=== PATIENT | male | born 1940 | race Caucasian/White ===

== ENCOUNTER 2016-08-01 07:49 | Emergency (ER) ==
[2016-08-01 07:58] VITALS: BMI 27.8
--- NOTE | 2016-08-01 08:21 | ED.PDOC ---
General ED Provider: Dr. JUANY BRIAN Chief Complaint: Earache Stated Complaint: Patient is a 75 year male who comes to Er with Left ear pain which feels like wax. He has been following up with ENT for the same ear pain from time to time and has a tube in left ear. Has decreased hearing. Denies any drainage. Time Seen by Physician: 08:19 Mode of Arrival: Walk-In Information Source: Patient Exam Limitations: No limitations Primary Care Provider: NORRIS BEDOYA Nursing and Triage Documentation Reviewed and Agree: Yes Review of Systems - Review Of Systems Constitutional: Reports: No symptoms Eyes: Reports: No symptoms Ears, Nose, Mouth, Throat: Reports: Ear pain Respiratory: Reports: No symptoms Cardiac: Reports: No symptoms GI: Reports: No symptoms : Reports: No symptoms Musculoskeletal: Reports: No symptoms Skin: Reports: No symptoms Neurological: Reports: No symptoms Endocrine: Reports: No symptoms Hematologic/Lymphatic: Reports: No symptoms All Other Systems: Reviewed and Negative Past Medical History - Past Medical History Endocrine: Reports: None Cardiovascular: Reports: None Respiratory: Reports: None Hematological: Reports: None Gastrointestinal: Reports: GERD Genitourinary: Reports: Kidney stones, Other Neuro/Psych: Reports: None Musculoskeletal: Reports: Back Pain Cancer: Reports: None Other Pertinent Past Medical History: prostate enlargement - Surgical History General Surgical History: Reports: Hernia Repair, Other (HEMORRHOID, ROSANA STRIPPNG, HERNIA) - Family History Family History: Reports: Unknown - Social History Smoking Status: Former smoker Hx Substance Use: No Alcohol Screening: Occasionally Physical Exam - Physical Exam Appearance: Ill-appearing Ill-appearing: Mild Pain Distress: Mild Eyes: CESIA, EOMI, Conjunctiva clear ENT: Ears normal (tube on the ear drum with no drainage ) Neck: Supple Respiratory: Airway patent, Breath sounds clear, Breath sounds equal, Respirations nonlabored Cardiovascular: RRR, Pulses normal, No rub, No murmur Skin: Warm, Dry, Normal color Neurological: Motor intact, Alert, Oriented Psychiatric: Affect appropriate, Mood appropriate Critical Care Note - Critical Care Note Total Time (mins): 0 Course - Course Vital Signs: Temp Pulse Resp BP Pulse Ox 08/01/16 07:49 98.6 F 74 16 148/83 H 94 L Departure - Departure Time of Disposition: 08:19 Disposition: HOME SELF-CARE Discharge Problem: Otitis media Instructions: Otitis Media (ED) Condition: Fair Pt referred to PMD for follow-up: Yes Additional Instructions: Take Medications as prescribed follow up with ENT soon. Prescriptions: Amoxicillin [Amoxil] 500 mg PO TID #30 capsule Tramadol HCl [Ultram] 50 mg PO Q6H PRN #14 tablet PRN Reason: Severe Pain Allergies/Adverse Reactions: Allergies No Known Allergies Allergy (Verified 08/01/16 07:55) Home Medications: Ambulatory Orders Alfuzosin HCl [Uroxatral] 10 mg PO DAILY 11/09/12 Dapsone [Aczone] 60 gm TP PRN PRN 11/09/12 Esomeprazole Magnesium [Nexium] 40 mg PO DAILY 11/09/12 Minocycline HCl 100 mg PO PRN PRN 11/09/12 Citalopram Hydrobromide [Citalopram HBr] 1 tab PO DAILY 09/21/14 Finasteride 1 tab PO DAILY 09/21/14 Amoxicillin [Amoxil] 500 mg PO TID #30 capsule 08/01/16 Tramadol HCl [Ultram] 50 mg PO Q6H PRN #14 tablet 08/01/16 Disposition Discussed With: Patient
[2016-08-01 08:31] VITALS: BP 134/80; TEMP 97.8
== END 2016-08-01 08:29 | disposition home or self-care (01) ==
LOC: ED 07:49
DX: H66.92 Otitis media, unspecified, left ear (principal); Z96.22 Myringotomy tube(s) status
CPT/HCPCS: 99282

== ENCOUNTER 2017-07-25 18:43 | Emergency (ER) | payer OTHER ==
[2017-07-25 18:48] VITALS: BP 132/83; TEMP 98.4; BMI 26.7
[2017-07-25] MEDS ORDERED: TENIVAC IM ONE (18:55)
--- NOTE | 2017-07-25 18:59 | ED.PDOC ---
General ED Provider: Dr. NORRIS BEDOYA-ER Chief Complaint: Puncture Wound Stated Complaint: i stepped on a nail Time Seen by Physician: 18:57 Mode of Arrival: Walk-In Information Source: Patient Exam Limitations: No limitations Primary Care Provider: NORRIS BEDOYA Nursing and Triage Documentation Reviewed and Agree: Yes Reviewed sepsis parameters & appropriate labs ordered?: Yes System Inflammatory Response Syndrome: Not Applicable Sepsis Protocol: For patient's 13 years and over: Temp is 96.8 and below OR 101 and greater Pulse >90 BPM Resp >20/minute Acutely Altered Mental Status Are patient's symptoms suggestive of a new infection, such as: -Pneumonia -Skin, Soft Tissue -Endocarditis -UTI -Bone, Joint Infection -Implantable Device -Acute Abdominal Infection -Wound Infection -Meningitis -Blood Stream Catheter Infection -Unknown Skin Complaint Exam - Skin/Soft Tissue Complaint/Exam Onset/Duration: left foot Symptoms Are: Still present Timing: Constant Initial Severity: Mild Current Severity: None Location: bottom of foot Character: Reports: Redness. Denies: Swelling, Raised, Painful Aggravating: Reports: None Alleviating: Reports: None Associated Signs and Symptoms: Denies: Fever, Chills, Itching, Drainage, Bruising, Tenderness, Red streaks, Joint swelling Related Surgical History: Reports: None Recent Exposure to Others w/Similar Symptoms: No Skin Findings: Present: Other Joint Tenderness Present: No Differential Diagnoses: Other Review of Systems - Review Of Systems Constitutional: Reports: No symptoms Eyes: Reports: No symptoms Ears, Nose, Mouth, Throat: Reports: No symptoms Respiratory: Reports: No symptoms Cardiac: Reports: No symptoms GI: Reports: No symptoms : Reports: No symptoms Musculoskeletal: Reports: No symptoms Skin: Reports: No symptoms Neurological: Reports: No symptoms Endocrine: Reports: No symptoms Hematologic/Lymphatic: Reports: No symptoms All Other Systems: Reviewed and Negative Past Medical History - Past Medical History Previously Healthy: No Endocrine: Reports: None Cardiovascular: Reports: None Respiratory: Reports: None Hematological: Reports: None Gastrointestinal: Reports: GERD Genitourinary: Reports: Kidney stones, Other Neuro/Psych: Reports: None Musculoskeletal: Reports: Back Pain Cancer: Reports: None Other Pertinent Past Medical History: prostate enlargement - Surgical History General Surgical History: Reports: Hernia Repair, Other (HEMORRHOID, ROSANA STRIPPNG, HERNIA) - Family History Family History: Reports: Unknown - Social History Smoking Status: Former smoker Hx Substance Use: No Alcohol Screening: Occasionally - Immunizations Tetanus Shot up to Date: No Physical Exam - Physical Exam Appearance: Well-appearing Eyes: CESIA, EOMI, Conjunctiva clear ENT: Ears normal, Nose normal, Oropharynx normal Neck: Supple Respiratory: Airway patent, Breath sounds clear, Breath sounds equal, Respirations nonlabored Cardiovascular: RRR, Pulses normal, No rub, No murmur GI/: Soft, Nontender, No masses, Bowel sounds normal, No Organomegaly Musculoskeletal: Normal strength, ROM intact, No edema, No calf tenderness Skin: Warm, Dry, Normal color Neurological: Sensation intact, Motor intact, Reflexes intact, Cranial nerves intact, Alert, Oriented Psychiatric: Affect appropriate Critical Care Note - Critical Care Note Total Time (mins): 0 Course - Course Orders, Labs, Meds: Orders Category Date Time Status Tetanus and Diphtheria Tox/Pf [Tenivac] MEDS 07/25/17 18:55 Once 0.5 ml IM .ONCE ONE Medications Generic Name Dose Route Start Last Admin Trade Name Freq PRN Reason Stop Dose Admin Tetanus/Diphtheria Toxoids Adsorbed 0.5 ml 07/25/17 18:55 Tenivac IM 07/25/17 18:56 .ONCE ONE Vital Signs: Temp Pulse Resp BP Pulse Ox 07/25/17 18:44 98.4 F 93 H 20 132/83 94 L Departure - Departure Time of Disposition: 18:58 Disposition: HOME SELF-CARE Discharge Problem: Puncture wound Instructions: Puncture Wound (ED) Condition: Good Pt referred to PMD for follow-up: Yes IPMP verified?: No Additional Instructions: keep clean and dry--call if any signs of infection Allergies/Adverse Reactions: Allergies No Known Drug Allergies Allergy (Verified 07/25/17 18:50) Home Medications: Ambulatory Orders Alfuzosin HCl [Uroxatral] 10 mg PO DAILY 11/09/12 Esomeprazole Magnesium [Nexium] 40 mg PO DAILY 11/09/12 Citalopram Hydrobromide [Citalopram HBr] 1 tab PO DAILY 09/21/14 Finasteride 1 tab PO DAILY 09/21/14 Disposition Discussed With: Patient
== END 2017-07-25 19:14 | disposition home or self-care (01) ==
LOC: ED 18:43
DX: S91.332A Puncture wound without foreign body, left foot, initial encounter (principal); W45.0XXA Nail entering through skin, initial encounter
CPT/HCPCS: 90471; 90714; 99282

== ENCOUNTER 2018-01-10 11:10 | Day surgery (SDC) | payer OTHER ==
[2018-01-10] MEDS ORDERED: SUBLIMAZE ONE (12:34)
[2018-01-10] MEDS ORDERED: DIPRIVAN 20 ML VIAL IVP ONE (12:34)
[2018-01-10] MEDS ORDERED: VERSED ONE (12:34)
[2018-01-10 15:42] VITALS: BP 11/76
--- NOTE | 2018-01-11 11:15 | OP ---
PROCEDURE: EGD (ESOPHAGOGASTRODUODENOSCOPY) . ENDOSCOPIST: Lui MAC M.D. INDICATION: ABDOMINAL PAIN INSTRUMENT: [id number]. MEDICATION: PER ANESTHESIA. PROCEDURE: The patient was positioned for endoscopy. The oropharynx was sprayed with Cetacaine spray and the endoscope was advanced through the bite block into the esophagus and from there advanced to the duodenum. The duodenum was normal. The pylorus was patent. The antrum reveals gastritis. He has a large hiatal hernia on retroflex exam. The esophagus was normal. PLAN: 1. Continue current medications and call us back if he has recurrent pain. MTDD
== END 2018-01-10 13:30 | disposition home or self-care (01) ==
LOC: SURG 11:10
PROVIDERS: ATTEND Internal Medicine Gastroenterology
DX: R10.9 Unspecified abdominal pain (principal); K29.70 Gastritis, unspecified, without bleeding; K44.9 Diaphragmatic hernia without obstruction or gangrene

== ENCOUNTER 2018-09-21 15:21 | Outpatient (POV) | payer OTHER ==
[2012-11-09 09:24] VITALS: TEMP 98.4
== END 2018-09-21 17:00 ==
LOC: OUTPT 15:21
PROVIDERS: ATTEND Otolaryngology
DX: H91.90 Unspecified hearing loss, unspecified ear (principal)
CPT/HCPCS: 92557

== ENCOUNTER 2024-06-28 10:53 | Inpatient (IN) ==
--- NOTE | 2024-06-28 14:22 | ED.PDOC ---
General ED Provider: Dr. ARMIDA THOMAS MD Chief Complaint: Respiratory Complaint Stated Complaint: 83-year-old male, former smoker, presenting to the emergency department chief complaint of generalized weakness. Patient states over the past 3 days he has a nonproductive cough that he can feel rattling in his chest. He has also had fevers and chills. He is having myalgias. No headache, no abdominal pain no nausea or vomiting. Patient is denying any chest pain. He is not having any wheezing. Nothing particular makes his cough better or worse. He states that he lives alone and had to call his son today because he was so weak that he lowered himself to the ground. He last took Tylenol yesterday has not been taking ibuprofen. He is not having any dysuria or frequency. States that he has been drinking Gatorade and drink 6 bottles over the last couple days. Time Seen by Provider: 06/28/24 14:11 Information Source: Patient Nursing and Triage Documentation Reviewed and Agree: Yes What is Opioid Naive?: *Opioid Naive implies the patient is not already taking opioids or not chronically receiving opioids on a daily basis. *PRN dosing is not "usually" associated with tolerance. *Patients are at higher risk of over-sedation and aspiration. What is Opioid Tolerant?: *Opioid Tolerance implies less than the expected response to an opioid. *Acquired tolerance is defined by the patient taking 60mg of oral morphine daily (or equianalgesic dose of another opioid) for 1 week or more. *Often associated with chronic pain. *May take more than usual dose to achieve desired pain control. Review of Systems Review Of Systems Constitutional: Reports Chills, Fever and Malaise [facility] Medical History Chronic otitis media of left ear H66.92 - Otitis media, unspecified, left ear (ICD-10) Cerumen impaction H61.20 - Impacted cerumen, unspecified ear (ICD-10) Acute otitis media H66.90 - Otitis media, unspecified, unspecified ear (ICD-10) Hearing problem H91.90 - Unspecified hearing loss, unspecified ear (ICD-10) Social History Smoking and tobacco status: Former smoker Alcohol intake: current Substance use type: does not use Isabel/caodaism: VOODOO Housing: house Surgical History Kidney stone Physical Exam Physical Exam Appearance: Reports Well-appearing and No pain distress Eyes: Reports CESIA, EOMI and Conjunctiva clear ENT: Reports Ears normal Neck: Supple Respiratory: Reports Airway patent and Breath sounds clear; Denies Rhonchi, Wheezes or Retractions Cardiovascular: Reports RRR, Pulses normal and No rub; Denies Irregular rhythm or Murmur GI/: Reports Soft and Nontender Musculoskeletal: Reports Normal strength and ROM intact Skin: Reports Warm and Dry Neurological: Reports Sensation intact, Motor intact and Alert Interpretation EKG Interpretation EKG Interpretation By: ED Physician Time of EKG #1: 14:30 Rate: Normal Rhythm: Sinus Walton: NL Interpretation: Right bundle branch block Course Course 06/28/24 14:45 06/28/24 14:45 Orders, Labs, Meds: Lab Review 06/28/24 06/28/24 14:20 14:45 WBC 10.11 RBC 4.35 L Hgb 14.3 Hct 44.1 MCV 101.4 H MCH 32.9 H MCHC 32.4 RDW Coeff of Britta 14.2 Plt Count 110 L Immature Gran % (Auto) 0.3 Neut % (Auto) 78.7 H Lymph % (Auto) 6.7 L Toole % (Auto) 14.1 H Eos % (Auto) 0.0 Baso % (Auto) 0.2 Neut # (Auto) 8.0 H Lymph # (Auto) 0.7 Toole # (Auto) 1.4 Eos # (Auto) 0.0 Baso # (Auto) 0.0 Immature Gran # (Auto) 0.0 Sodium 141.3 Potassium 4.25 Chloride 107.9 H Carbon Dioxide 24.3 Anion Gap 13.35 BUN 30.0 H Creatinine 1.27 H Estimated GFR (MDRD) 54.00 BUN/Creatinine Ratio 23.62 Glucose 116.3 H Calcium 8.67 Total Bilirubin 0.81 AST 41.7 ALT 23.7 Alkaline Phosphatase 44.7 L Total Protein 6.44 Albumin 3.78 Globulin 2.66 Albumin/Globulin Ratio 1.42 Influ A Molecular Assay Positive by naat H Influ B Molecular Assay Negative by naat RSV Antigen Negative by naat SARS CoV-2 RNA Rapid ELIANE Negative Orders Category Date Time Status ADMIT OBSERVATION [PLACE PATIENT OBSERVATION] .TO ADMISSION 06/28/24 16:39 Active MEDSURG (MONITORED BED) EKG-(ED ONLY) Stat CARDIO 06/28/24 14:18 Completed CBC W/ AUTO DIFF Stat LAB 06/28/24 14:45 Completed CMP [COMPREHENSIVE METABOLIC PANEL] Stat LAB 06/28/24 14:45 Completed COVID [SARS COV-2 RNA RAPID ELIANE] Stat LAB 06/28/24 14:20 Completed FLU A & B MOLECULAR [FLU A/B MOLECULAR] Stat LAB 06/28/24 14:20 Completed RSV Stat LAB 06/28/24 14:20 Completed Acetaminophen [Tylenol] Meds 06/28/24 14:17 Discontinued 1,000 mg PO ONCE ONE Ketorolac Tromethamine [Toradol] Meds 06/28/24 14:19 Discontinued 15 mg IVP ONCE ONE Sodium Chloride 0.9% [Sodium Chloride] 1,000 ml Meds 06/28/24 14:19 Discontinued IV BOLUS CXR [CHEST, 2 VIEWS PA & LAT] Stat RADS 06/28/24 14:17 Completed Medications Generic Name Dose Route Start Last Admin Trade Name Freq PRN Reason Stop Dose Admin Acetaminophen 650 mg 06/28/24 17:06 Acetaminophen 325 Mg Tablet PO Q4H PRN Mild Pain Albuterol/Ipratropium 3 ml 06/28/24 17:10 Ipratropium/Albuterol Vial.Neb NEB RTQ6H PRN Wheezing Guaifenesin/Dextromethorphan 10 ml 06/28/24 17:10 Guaifenesin/Dextromethorphan 200/20 Mg/10 Ml Cup PO Q4H PRN Cough Lactated Ringer's 1,000 mls @ 75 mls/hr 06/28/24 17:30 Lactated Ringers IV .[id number] JEANNIE Ondansetron HCl 4 mg 06/28/24 17:06 Ondansetron Hcl/Pf 4 Mg/2 Ml Sdv IVP Q6H PRN Nausea / Vomiting Oseltamivir Phosphate 75 mg 06/28/24 17:10 Oseltamivir Phosphate 75 Mg Capsule PO Q12HR JEANNIE Discontinued Medications Generic Name Dose Route Start Last Admin Trade Name Freq PRN Reason Stop Dose Admin Acetaminophen 1,000 mg 06/28/24 14:17 06/28/24 15:00 Acetaminophen 500 Mg Tablet PO 06/28/24 14:18 1,000 mg ONCE ONE Administration Sodium Chloride 1,000 mls @ 1,000 mls/hr 06/28/24 14:19 06/28/24 16:03 Sodium Chloride IV 06/28/24 15:18 Infused BOLUS ONE Infusion Ketorolac Tromethamine 15 mg 06/28/24 14:19 06/28/24 15:00 Ketorolac Tromethamine 15 Mg/Ml Vial IVP 06/28/24 14:20 15 mg ONCE ONE Administration Vital Signs: Temp Pulse Resp BP Pulse Ox 06/28/24 14:09 98.8 F 81 18 94 L 06/28/24 12:25 100.2 F 87 20 108/62 92 L Discharge Plan Discharge Patient Disposition: PLACED OBSERVATION Discharge Problem: Influenza A, Dehydration Did you review [place] [employer] for ALL controlled substances?: Not Applicable ED Provider: ARMIDA THOMAS Condition: Stable Physician Progress Note: 83-year-old with no significant past medical history, relatively healthy, presenting with 3 days of cough chills malaise body aches and general weakness. Was at a with multiple day of her day thinks may have come into sick contact there. He is not having shortness of breath. He is not having any chest pain or palpitations no wheezing. He has no history of COPD and does not use albuterol. He is afebrile in the ED, he is 96% with a good Plath. His blood pressure is stable. He is not toxic appearing, likely consistent with a viral illness most likely the flu given the prevalence however will get viral studies in case patient needs to be admitted he is reporting significant generalized weakness however he did not take any medication for symptoms. Will get basic labs to address hydration status. Will get chest x-ray to screen for pneumonia. No urinary symptoms. No signs otherwise of a bacterial infection. No meningeal signs, no signs of retropharyngeal abscess or [employer]ER on exam, no abdominal tenderness. No cellulitis noted. Will reevaluate after medication and workup to discuss disposition with patient. Patient ambulated however he was a little unsteady still feeling weak. I did offer him admission for fluid hydration and observation in the setting of influenza which patient initially wanted to go home but now prefers to stay. Discussed with hospitalist for admission.
--- NOTE | 2024-06-28 14:42 | DI ---
EXAM: FRONTAL AND LATERAL CHEST RADIOGRAPH(S). 2 VIEWS. History:Shortness of breath Comparison: 02/07/2024 Findings: Heart size normal. Emphysema. Fibrotic changes at both lung bases. No lobar consolidatio n. No pneumothorax or pleural effusion. Impression: Please see above.
[2024-06-28 14:50] LABS: BASOPHILS % (AUTO) 0.2 % (0.0-3.0); HEMATOCRIT 44.1 % (42.0-52.0); HEMOGLOBIN 14.3 g/dl (14.0-18.0); IMMATURE GRANULOCYTE % (AUTO) 0.3 % (0.0-5.0); LYMPHOCYTES # (AUTO) 0.7 K/uL (0.60-3.4); LYMPHOCYTES % (AUTO) 6.7 (10.0-50.0); MEAN CORPUSCULAR HEMOGLOBIN 32.9 pg (27.0-31.0); MEAN CORPUSCULAR HGB CONC 32.4 (31.8-35.4); MEAN CORPUSCULAR VOLUME 101.4 fl (80.0-94.0); MONOCYTES # (AUTO) 1.4 K/uL (0.4-2.0); MONOCYTES % (AUTO) 14.1 (0-10); NEUTROPHILS % (AUTO) 78.7 % (42.2-75.2); PLATELET COUNT 110 10^3/uL (140-440); RDW COEFFICIENT OF VARIATION 14.2 % (11.6-14.8); RED BLOOD COUNT 4.35 10^6/ul (4.70-6.10); WHITE BLOOD COUNT 10.11 K/ul (4.2-10.2)
[2024-06-28 14:52] LABS: MOLECULAR FLU A POSITIVE BY NAAT (NEGATIVE); MOLECULAR FLU B NEGATIVE BY NAAT (NEGATIVE); SARS COV-2 RNA RAPID NAAT NEGATIVE (NEGATIVE)
[2024-06-28 14:53] LABS: RSV MOLECULAR NEGATIVE BY NAAT (NEGATIVE)
[2024-06-28] MEDS: SODIUM CHLORIDE 1,000 ML IV ONE (14:59)
[2024-06-28] MEDS: TORADOL IVP ONE (15:00)
[2024-06-28] MEDS: TYLENOL PO ONE (15:00)
[2024-06-28 15:02] LABS: ALANINE AMINOTRANSFERASE 23.7 U/L (0-50); ALBUMIN 3.78 g/dL (3.5-5.0); ALKALINE PHOSPHATASE 44.7 U/L (56-119); ASPARTATE AMINO TRANSFERASE 41.7 U/L (17-59); BILIRUBIN,TOTAL 0.81 mg/dL (0.2-1.3); CALCIUM 8.67 mg/dL (8.4-10.2); CARBON DIOXIDE 24.3 mmol/L (22-30.0); CHLORIDE 107.9 mmol/L (98-107); CREATININE 1.27 mg/dL (0.60-1.10); GLUCOSE 116.3 mg/dL (74-106); POTASSIUM 4.25 mmol/L (3.5-5.1); SODIUM 141.3 mmol/L (134.5-145); TOTAL PROTEIN 6.44 g/dL (6.3-8.2)
[2024-06-28] MEDS ORDERED: TYLENOL PO PRN (17:06)
[2024-06-28] MEDS ORDERED: ZOFRAN SDV IVP PRN (17:06)
[2024-06-28] MEDS ORDERED: ROBITUSSIN DM SYRUP PO PRN (17:10)
[2024-06-28] MEDS: TAMIFLU CAPSULE PO SCH (18:18)
[2024-06-28] MEDS: LACTATED RINGERS 1,000 ML IV SCH (18:18)
[2024-06-28 18:23] VITALS: BMI 27.1
[2024-06-28] MEDS: PROSCAR PO SCH (18:50)
[2024-06-28] MEDS: UROXATRAL PO SCH (18:50)
[2024-06-28] MEDS: CYMBALTA PO SCH (18:50)
[2024-06-28] MEDS: PROTONIX PO SCH (20:38)
[2024-06-29 05:12] LABS: BASOPHILS % (AUTO) 0.3 % (0.0-3.0); EOSINOPHILS % (AUTO) 0.5 % (0.0-7.0); HEMATOCRIT 42.5 % (42.0-52.0); HEMOGLOBIN 13.5 g/dl (14.0-18.0); IMMATURE GRANULOCYTE % (AUTO) 0.3 % (0.0-5.0); LYMPHOCYTES # (AUTO) 0.8 K/uL (0.60-3.4); LYMPHOCYTES % (AUTO) 11.9 (10.0-50.0); MEAN CORPUSCULAR HEMOGLOBIN 32.5 pg (27.0-31.0); MEAN CORPUSCULAR HGB CONC 31.8 (31.8-35.4); MEAN CORPUSCULAR VOLUME 102.2 fl (80.0-94.0); MONOCYTES # (AUTO) 0.6 K/uL (0.4-2.0); MONOCYTES % (AUTO) 9.9 (0-10); NEUTROPHILS # (AUTO) 4.9 K/ul (2.0-6.9); NEUTROPHILS % (AUTO) 77.1 % (42.2-75.2); PLATELET COUNT 91 10^3/uL (140-440); RDW COEFFICIENT OF VARIATION 14.2 % (11.6-14.8); RED BLOOD COUNT 4.16 10^6/ul (4.70-6.10); WHITE BLOOD COUNT 6.38 K/ul (4.2-10.2)
[2024-06-29 05:23] LABS: ALANINE AMINOTRANSFERASE 21.3 U/L (0-50); ALBUMIN 3.09 g/dL (3.5-5.0); ALKALINE PHOSPHATASE 43.7 U/L (56-119); ASPARTATE AMINO TRANSFERASE 40.1 U/L (17-59); BILIRUBIN,TOTAL 0.6 mg/dL (0.2-1.3); BLOOD UREA NITROGEN 30.9 mg/dL (9-20); CALCIUM 8.32 mg/dL (8.4-10.2); CARBON DIOXIDE 23.9 mmol/L (22-30.0); CHLORIDE 108.6 mmol/L (98-107); CREATININE 1.1 mg/dL (0.60-1.10); GLUCOSE 102.2 mg/dL (74-106); POTASSIUM 3.94 mmol/L (3.5-5.1); SODIUM 141.4 mmol/L (134.5-145); TOTAL PROTEIN 5.63 g/dL (6.3-8.2)
[2024-06-29] MEDS: ZESTRIL PO SCH (08:37)
[2024-06-29] MEDS: NON-FORMULARY MEDICATION (Terbinafine Hcl 250 mg tablet) PO SCH (08:45)
[2024-06-29] MEDS: DUONEB NEB PRN (10:54)
--- NOTE | 2024-06-29 13:47 | PCM ---
Date of Service Date Seen by Provider: 06/29/24 Time Seen by Provider: 08:20 Admit Day/Time Admission Date: 06/28/24 Admission Time: 16:39 Reason for Admission Chief Complaint: INFLUENZA, DEHYDRATION, FAILURE TO AMBULATE Hospital Provider Hospital Provider: FOSTER KATZ PA-C, [facility] History of Present Illness History of Present Illness: Patient is a 83 year old male with pmhx of GERD, hypertension, COPD, BPH who presents for weakness. Patient states he was so weak at home he had to lower himself to the ground. He barely could call his son. He had started not feeling well a couple days ago with cough and sob. In the ER he was noted to be flu A positive. Overall labs are unremarkable. CXR negative. Pt was ambulated in the ER and too weak for safe discharge to home. Pt given fluids. Started on tamiflu. Admitted to med surg. Today patient states he's feeling better, has been ambulatory to the bathroom. However he is very wheezy and is having conversational dyspnea during exam. He lives at home alone as well. Case Discussed With Case Discussed With: Patient's case was discussed with the ER Physicians, Dr. Leslie. [facility] Medical History BPH (benign prostatic hyperplasia) N40.0 - Benign prostatic hyperplasia without lower urinary tract symptoms (ICD-10) Chronic otitis media of left ear H66.92 - Otitis media, unspecified, left ear (ICD-10) Cerumen impaction H61.20 - Impacted cerumen, unspecified ear (ICD-10) Acute otitis media H66.90 - Otitis media, unspecified, unspecified ear (ICD-10) Hearing problem H91.90 - Unspecified hearing loss, unspecified ear (ICD-10) Surgical History History of vein stripping Z98.890 - Other specified postprocedural states (ICD-10) Kidney stone Family History FATHER Stroke Social History Smoking and tobacco status: Former smoker Alcohol intake: current Substance use type: does not use Isabel/temple: SPIRITISM Housing: house Allergies Allergies Allergy/AdvReac Type Severity Reaction Status Date / Time No Known Drug Allergies Allergy Unknown unk Verified 06/28/24 14:04 Current Medications Home Medications Acetaminophen (Acetaminophen 325 Mg Tablet) 650 mg PO Q4H PRN PRN Reason: Mild Pain Albuterol/Ipratropium (Ipratropium/Albuterol Vial.Neb) 3 ml NEB RTQ6H PRN PRN Reason: Wheezing Last Admin: 06/29/24 10:54 Dose: 3 ml Alfuzosin HCl (Alfuzosin Hcl 10 Mg Tab.Er.24h) 10 mg PO DAILY [facility] Last Admin: 06/29/24 08:37 Dose: 10 mg Duloxetine HCl (Duloxetine Hcl 30 Mg Capsule.) 30 mg PO DAILY [facility] Last Admin: 06/29/24 08:38 Dose: 30 mg Finasteride (Finasteride 5 Mg Tablet) 5 mg PO DAILY [facility] Last Admin: 06/29/24 08:37 Dose: 5 mg Guaifenesin/Dextromethorphan (Guaifenesin/Dextromethorphan 200/20 Mg/10 Ml Cup) 10 ml PO Q4H PRN PRN Reason: Cough Lisinopril (Lisinopril 10 Mg Tablet) 30 mg PO DAILY [facility] Last Admin: 06/29/24 08:37 Dose: 30 mg Methylprednisolone Sodium Succinate (Methylprednisolone Sod Succ/Pf 40 Mg/Ml Vial) 40 mg IVP Q8HR [facility] Non-Formulary Medication (Terbinafine Hcl) 250 mg PO DAILY [facility] Last Admin: 06/29/24 08:45 Dose: Not Given Ondansetron HCl (Ondansetron Hcl/Pf 4 Mg/2 Ml Sdv) 4 mg IVP Q6H PRN PRN Reason: Nausea / Vomiting Oseltamivir Phosphate (Oseltamivir Phosphate 75 Mg Capsule) 75 mg PO Q12HR [facility] Stop: 07/03/24 17:09 Last Admin: 06/29/24 08:36 Dose: 75 mg Pantoprazole Sodium (Pantoprazole Sodium 40 Mg Tablet.) 40 mg PO QDAC2 [facility] Last Admin: 06/29/24 05:05 Dose: 40 mg finasteride 5 mg tablet 1 tab PO DAILY 05/01/15 [History Confirmed 06/28/24] pantoprazole 40 mg tablet,delayed release 40 mg PO QDAY 06/26/20 [History Confirmed 06/28/24] duloxetine 30 mg capsule,delayed release 30 mg PO DAILY 07/29/20 [History Confirmed 06/28/24] alfuzosin 10 mg tablet,extended release 24 hr 10 mg PO DAILY 02/03/21 [History Confirmed 06/28/24] lisinopril 30 mg tablet 30 mg PO DAILY 02/03/21 [History Confirmed 06/28/24] terbinafine HCl 250 mg tablet 250 mg PO DAILY 06/28/24 [History Confirmed 06/28/24] Opioid Naive vs. Tolerant Does Patient Take Opioids?: No Is Patient Opioid Naive?: Yes What is Opioid Naive?: *Opioid Naive implies the patient is not already taking opioids or not chronically receiving opioids on a daily basis. *PRN dosing is not "usually" associated with tolerance. *Patients are at higher risk of over-sedation and aspiration. Is Patient Opioid Tolerant?: No What is Opioid Tolerant?: *Opioid Tolerance implies less than the expected response to an opioid. *Acquired tolerance is defined by the patient taking 60mg of oral morphine daily (or equianalgesic dose of another opioid) for 1 week or more. *Often associated with chronic pain. *May take more than usual dose to achieve desired pain control. Review of Systems Constitutional: Reports Fatigue and Weakness Head: Reports Normocephalic and Atraumatic Cardiovascular: Denies Chest pain, Chest Pressure or Edema Respiratory: Reports Cough and Shortness of air Gastrointestinal: Denies Nausea, Vomiting, Diarrhea, Abdominal pain or Melena Genitourinary: Denies Dysuria or Hematuria Neurological: Reports Weakness and Problems with walking; Denies Headache, Dizziness or Syncope Physical examination Most Recent Vital Signs: Most Recent Vital Signs Temperature 99.1 F 06/29/24 10:00 Temperature Source Temporal Artery Scan 06/29/24 10:00 Temperature Source Infrared 06/28/24 17:50 Pulse Rate 90 06/29/24 10:00 Respiratory Rate 21 H 06/29/24 10:00 Blood Pressure 98/71 06/29/24 10:00 Blood Pressure Mean 80 06/29/24 10:00 Blood Pressure Left Arm 113/79 06/28/24 17:51 Blood Pressure Location Right Arm 06/29/24 10:00 Blood Pressure Position Supine 06/29/24 04:53 O2 Sat by Pulse Oximetry 91 L 06/29/24 10:00 Oxygen Delivery Method Room Air 06/29/24 13:00 Height 6 ft 1 in 06/29/24 08:48 Weight 93.4 kg 06/29/24 08:48 Telemetry Type Remote Telemetry 06/29/24 07:00 Telemetry Monitoring Continues 06/29/24 07:00 Irregular Telemetry Rate (Approximate) 60-70 BPM 06/28/24 18:41 Telemetry Heart Rate 100 06/29/24 07:00 EKG DE Interval 0.21 H 06/29/24 01:00 EKG QRS Interval 0.08 06/29/24 07:00 Telemetry Strip Reading Atrial fib 06/29/24 07:00 Appearance: Positive No Apparent Distress and Alert and Oriented x3 Skin: Positive [place], Warm, Good Turgor and Good Color; Negative Rashes HEENT: Positive Normocephalic and Atraumatic Neck: Positive Supple and Midline Trachea Chest/Lungs: Positive Symmetrical With Equal Breath Sounds, Wheezes (amos) and Other (+conversational dyspnea ) Heart: Positive RRR GI/: Positive Soft, Nontender, Bowel Sounds Normal and No Distention Extremities: Negative Edema Neurological: Positive Cranial Nerves Intact, Alert, Oriented and Other (+generalized weakness ) Psychiatric: Positive Oriented x4, Appropriate Mood and Appropriate Affect Labs This Visit Labs This Visit: Labs This Visit 06/28/24 06/28/24 06/29/24 14:20 14:45 05:02 WBC 10.11 6.38 RBC 4.35 L 4.16 L Hgb 14.3 13.5 L Hct 44.1 42.5 MCV 101.4 H 102.2 H MCH 32.9 H 32.5 H MCHC 32.4 31.8 RDW Coeff of Britta 14.2 14.2 Plt Count 110 L 91 L Immature Gran % (Auto) 0.3 0.3 Neut % (Auto) 78.7 H 77.1 H Lymph % (Auto) 6.7 L 11.9 [place] % (Auto) 14.1 H 9.9 Eos % (Auto) 0.0 0.5 Baso % (Auto) 0.2 0.3 Neut # (Auto) 8.0 H 4.9 Lymph # (Auto) 0.7 0.8 [place] # (Auto) 1.4 0.6 Eos # (Auto) 0.0 0.0 Baso # (Auto) 0.0 0.0 Immature Gran # (Auto) 0.0 0.0 Sodium 141.3 141.4 Potassium 4.25 3.94 Chloride 107.9 H 108.6 H Carbon Dioxide 24.3 23.9 Anion Gap 13.35 12.84 BUN 30.0 H 30.9 H Creatinine 1.27 H 1.10 Estimated GFR (MDRD) 54.00 64.00 BUN/Creatinine Ratio 23.62 28.09 Glucose 116.3 H 102.2 Calcium 8.67 8.32 L Total Bilirubin 0.81 0.60 AST 41.7 40.1 ALT 23.7 21.3 Alkaline Phosphatase 44.7 L 43.7 L Total Protein 6.44 5.63 L Albumin 3.78 3.09 L Globulin 2.66 2.54 Albumin/Globulin Ratio 1.42 1.21 Influ A Molecular Assay Positive by naat H Influ B Molecular Assay Negative by naat RSV Antigen Negative by naat SARS CoV-2 RNA Rapid ELIANE Negative Imaging Imaging: EXAM: FRONTAL AND LATERAL CHEST RADIOGRAPH(S). 2 VIEWS. History:Shortness of breath Comparison: 02/07/2024 Findings: Heart size normal. Emphysema. Fibrotic changes at both lung bases. No lobar consolidation. No pneumothorax or pleural effusion. Impression: Please see above. Review Statement Review Statement: I have independently reviewed and interpreted the labs/EKGs/imaging that were ordered by the ER provider. I have reviewed all outside records that are available currently in our EMR including imaging/notes/labs from previous visits. Plan Plan: 1. Acute COPD exacerbation in setting of influenza A - steroids/nebs/tamiflu 2. Influenza A - plan as above, isolation 3. BPH - cont home meds 4. GERD - Cont home meds 5. Hypertension - Cont home meds DVT Prophylaxis: Ambulation Time Spent: Greater than 80 minutes spent with patient, 50% of the time spent with this patient was devoted to counseling and coordination of care. [facility] minutes spent discussing advance care planning. Admit to: made inpatient today Discussed Plan of Care with Dr. Amarjit Lange. Medications Medication Orders: Medications Ordered Category Date Time Status Acetaminophen [Tylenol] Meds 06/28/24 17:06 Active 650 mg PO Q4H PRN Alfuzosin HCl [Uroxatral] Meds 06/28/24 18:40 Active 10 mg PO DAILY Duloxetine HCl [Cymbalta] Meds 06/28/24 18:40 Active 30 mg PO DAILY Finasteride [Proscar] Meds 06/28/24 18:40 Active 5 mg PO DAILY Guaifenesin/Dextromethorphan [Robitussin Dm Syrup] Meds 06/28/24 17:10 Active 10 ml PO Q4H PRN Ipratropium/Albuterol Neb [Duoneb] Meds 06/28/24 17:10 Active 3 ml NEB RTQ6H PRN Lisinopril [Zestril] Meds 06/29/24 09:00 Active 30 mg PO DAILY Methylprednisolone Sod Succ/Pf [Solu-Medrol 40 mg] Meds 06/29/24 10:50 Active 40 mg IVP Q8HR Ondansetron HCl/Pf [Zofran Sdv] Meds 06/28/24 17:06 Active 4 mg IVP Q6H PRN Oseltamivir Phosphate Capsule [Tamiflu Capsule] Meds 06/28/24 17:10 Active 75 mg PO Q12HR Pantoprazole Sodium [Protonix] Meds 06/28/24 19:00 Active 40 mg PO QDAC2 terbinafine HCl Meds 06/29/24 09:00 Active 250 mg PO DAILY
[2024-06-29] MEDS: SOLU-MEDROL 40 MG IVP SCH (14:34)
[2024-06-30 05:52] LABS: BASOPHILS % (AUTO) 0.1 % (0.0-3.0); HEMATOCRIT 40.6 % (42.0-52.0); HEMOGLOBIN 13.1 g/dl (14.0-18.0); IMMATURE GRANULOCYTE % (AUTO) 0.4 % (0.0-5.0); LYMPHOCYTES # (AUTO) 0.7 K/uL (0.60-3.4); LYMPHOCYTES % (AUTO) 9.8 (10.0-50.0); MEAN CORPUSCULAR HEMOGLOBIN 32.4 pg (27.0-31.0); MEAN CORPUSCULAR HGB CONC 32.3 (31.8-35.4); MEAN CORPUSCULAR VOLUME 100.5 fl (80.0-94.0); MONOCYTES # (AUTO) 0.6 K/uL (0.4-2.0); MONOCYTES % (AUTO) 7.6 (0-10); NEUTROPHILS # (AUTO) 5.9 K/ul (2.0-6.9); NEUTROPHILS % (AUTO) 82.1 % (42.2-75.2); PLATELET COUNT 108 10^3/uL (140-440); RED BLOOD COUNT 4.04 10^6/ul (4.70-6.10); WHITE BLOOD COUNT 7.23 K/ul (4.2-10.2)
[2024-06-30 06:06] LABS: ALANINE AMINOTRANSFERASE 20.6 U/L (0-50); ALBUMIN 3.1 g/dL (3.5-5.0); ALKALINE PHOSPHATASE 43.3 U/L (56-119); ASPARTATE AMINO TRANSFERASE 32.4 U/L (17-59); BILIRUBIN,TOTAL 0.78 mg/dL (0.2-1.3); BLOOD UREA NITROGEN 31.1 mg/dL (9-20); CALCIUM 8.53 mg/dL (8.4-10.2); CARBON DIOXIDE 23.3 mmol/L (22-30.0); CHLORIDE 109.2 mmol/L (98-107); CREATININE 1.11 mg/dL (0.60-1.10); GLUCOSE 139.1 mg/dL (74-106); POTASSIUM 4.1 mmol/L (3.5-5.1); TOTAL PROTEIN 5.76 g/dL (6.3-8.2)
[2024-06-30 09:38] VITALS: BP 119/79; PULSE 55; RESP 20; TEMP 97.2
--- NOTE | 2024-06-30 10:53 | DCSUM ---
Admission Date Admission Date: 06/28/24 Discharge Date Discharge Date: 06/30/24 Admission Diagnosis Admission Diagnosis: 1. Acute COPD exacerbation in setting of influenza A 2. Influenza A Discharge Diagnosis Discharge Diagnosis: 1. Acute COPD exacerbation in setting of influenza A 2. Influenza A 3. BPH 4. GERD 5. Hypertension Hospital Provider Hospital Provider: FOSETR KATZ PA-C, [facility] Primary Care Physician Primary Care Physician: MIKE ZAZUETA Summary of History and Physical Summary of History and Physical: Patient is a 83 year old male with pmhx of GERD, hypertension, COPD, BPH who presents for weakness. Patient states he was so weak at home he had to lower himself to the ground. He barely could call his son. He had started not feeling well a couple days ago with cough and sob. In the ER he was noted to be flu A positive. Overall labs are unremarkable. CXR negative. Pt was ambulated in the ER and too weak for safe discharge to home. Pt given fluids. Started on tamiflu. Admitted to med surg. Today patient states he's feeling better, has been ambulatory to the bathroom. However he is very wheezy and is having conversational dyspnea during exam. He lives at home alone as well. Hospital Course Subjective: Patient has been ambulatory and feeling much better. Patient kept another night due to being wheezy and conversational dyspnea. He is much improved today. Feels comfortable with discharge home. Will send in remainder of tamiflu, steroids, and albuterol inhaler. Red flags on when to return discussed. Pt agrees to plan of care. Appearance: Pleasant, No Apparent Distress and Alert HEENT: MMM CVS: No Murmur Abdomen: Soft, Non-Tender and No Distention Respiratory: Other (+mild wheezing amos, greatly improved, nonlabored breathing, speaking full sentences ) Extremities: No Edema Vital Signs: Most Recent Vital Signs Temperature 97.2 F L 06/30/24 09:38 Temperature Source Temporal Artery Scan 06/30/24 09:38 Temperature Source Infrared 06/28/24 17:50 Pulse Rate 55 L 06/30/24 09:38 Respiratory Rate 20 06/30/24 09:38 Blood Pressure 119/79 06/30/24 09:38 Blood Pressure Mean 92 06/30/24 09:38 Blood Pressure Left Arm 113/79 06/28/24 17:51 Blood Pressure Location Right Arm 06/30/24 09:38 Blood Pressure Position Supine 06/30/24 09:38 O2 Sat by Pulse Oximetry 92 L 06/30/24 09:38 Oxygen Delivery Method Room Air 06/30/24 09:38 Height 6 ft 1 in 06/29/24 08:48 Weight 93.4 kg 06/29/24 08:48 Telemetry Type Remote Telemetry 06/30/24 07:00 Telemetry Monitoring Continues 06/30/24 07:00 Irregular Telemetry Rate (Approximate) 80-90 BPM 06/29/24 13:00 Telemetry Heart Rate 57 L 06/30/24 07:00 EKG DC Interval 0.18 06/30/24 07:00 EKG QRS Interval 0.12 H 06/30/24 07:00 Telemetry Strip Reading SB W/ BBB & PACS 06/30/24 07:00 Imaging: EXAM: FRONTAL AND LATERAL CHEST RADIOGRAPH(S). 2 VIEWS. History:Shortness of breath Comparison: 02/07/2024 Findings: Heart size normal. Emphysema. Fibrotic changes at both lung bases. No lobar consolidation. No pneumothorax or pleural effusion. Impression: Please see above. Lab Results Last 24 Hours: 06/30/24 05:00 WBC 7.23 RBC 4.04 L Hgb 13.1 L Hct 40.6 L MCV 100.5 H MCH 32.4 H MCHC 32.3 RDW Coeff of Britta 14.0 Plt Count 108 L Immature Gran % (Auto) 0.4 Neut % (Auto) 82.1 H Lymph % (Auto) 9.8 L [place] % (Auto) 7.6 Eos % (Auto) 0.0 Baso % (Auto) 0.1 Neut # (Auto) 5.9 Lymph # (Auto) 0.7 [place] # (Auto) 0.6 Eos # (Auto) 0.0 Baso # (Auto) 0.0 Immature Gran # (Auto) 0.0 Sodium 139.0 Potassium 4.10 Chloride 109.2 H Carbon Dioxide 23.3 Anion Gap 10.60 BUN 31.1 H Creatinine 1.11 H Estimated GFR (MDRD) 63.00 BUN/Creatinine Ratio 28.01 Glucose 139.1 H Calcium 8.53 Total Bilirubin 0.78 AST 32.4 ALT 20.6 Alkaline Phosphatase 43.3 L Total Protein 5.76 L Albumin 3.10 L Globulin 2.66 Albumin/Globulin Ratio 1.16 Discharge Instructions Discharge Planning: Discharge Planning > [address] Amarjit Lange. Discharge Medications: Medications at Discharge (Home Meds & RX) finasteride 5 mg tablet 1 tab PO DAILY 09/21/14 pantoprazole 40 mg tablet,delayed release 40 mg PO QDAY 06/26/20 duloxetine 30 mg capsule,delayed release 30 mg PO DAILY 07/29/20 alfuzosin 10 mg tablet,extended release 24 hr 10 mg PO DAILY 02/03/21 lisinopril 30 mg tablet 30 mg PO DAILY 02/03/21 terbinafine HCl 250 mg tablet 250 mg PO DAILY 06/28/24 albuterol sulfate 90 mcg/actuation breath activated powder inhaler 2 inh inhalation Q4-6H PRN shortness of breath or wheezing #1 ea 06/30/24 oseltamivir 75 mg capsule (Tamiflu) 75 mg PO Q12HR #7 caps 06/30/24 prednisone 20 mg tablet 20 mg PO BID 4 days #8 tabs 06/30/24 Discharge Plan Discharge Discharge Orders: Discharge Patient (ONCE); Ordered 06/30/24 Ordered By: FOSTER KATZ Activity Restrictions/Additional Instructions: DISCHARGE TO HOME DX: INFLUENZA RETURN WITH WORSENING SYMPTOMS PHARMACY: [facility] YOU'VE BEEN PRESCRIBED STEROIDS, TAMIFLU, AND AN INHALER Instructions: Influenza (GEN) Care Plan Goals: Problem: Fluid and electrolyte imbalance Goal: Maintain fluid and electrolyte balance Instructions: Monitor I/O as needed Obtain labs related to electrolytes Patient Disposition: HOME SELF-CARE Prescriptions: New oseltamivir [Tamiflu] 75 mg Capsule 75 mg PO Q12HR Qty: 7 0RF Rx Instructions: START TONIGHT 06/30/24 prednisone 20 mg tablet 20 mg PO BID 4 Days Qty: 8 0RF albuterol sulfate 90 mcg/actuation aerosol powdr breath activated 2 inh inhalation Q4-6H PRN (Reason: shortness of breath or wheezing) Qty: 1 0RF Continued finasteride 5 MG tablet 1 tab PO DAILY duloxetine 30 mg Capsule,Delayed Release(Dr/Ec) 30 mg PO DAILY lisinopril 30 mg tablet 30 mg PO DAILY alfuzosin 10 mg tablet extended release 24 hr 10 mg PO DAILY terbinafine HCl 250 mg tablet 250 mg PO DAILY pantoprazole 40 mg tablet,delayed release (DR/EC) 40 mg PO QDAY Did you review [place] for [place] controlled substances?: Not Applicable Discussed opioids are addictive and Narcan is available by prescription or from pharmacy.: No Condition: Stable Referrals: MIKE ZAZUETA [Primary Care Provider] - 07/06/24 8:00 am
== END 2024-06-30 13:00 | disposition home or self-care (01) | DRG 194 ==
LOC: ED 10:53 → MEDSURG B 10:53
PROVIDERS: ADMIT Hospitalist; ATTEND Physician Assistant